=== PATIENT | male | born 1950 | race Caucasian/White ===

== ENCOUNTER 2020-12-10 11:22 | Emergency (ER) | payer MEDICARE, OTHER ==
[~2020-12-10 11:22] MED LIST: JANUMET 50-1,01 EACH PO; LIPITOR 10MG TA10 MG PO; NORCO 10-325 T1 EACH PO; OMEPRAZOLE 20MG20 MG PO; PREVACID30 M1 PO; PRINIVIL20 MG PO; PROZAC20 MG PO; SYNTHROID75 MCG PO; TIZANIDINE HCL4 M1 PO
[2020-12-10 12:57] LABS: BASOPHIL 0.3 % (0-2); EOSINOPHIL 1.7 % (0-7); HCT 40.3 % (42.0-52.0); HGB 13.7 g/dl (13.2-18.0); LYMPHOCYTE 24.3 % (15-48); MCH 32.4 pg (25.0-31.0); MCV 95.3 fL (78.0-100.0); MPV 9.4 fL (6.0-9.5); NEUTROPHIL 65.4 % (41-80); NRBC 0; PLT 171 K/uL (150-400); RBC 4.23 M/uL (4.70-6.00); RDW 13.2 % (11.5-14.0); WBC 6.5 K/uL (4.0-10.5)
[2020-12-10 13:17] LABS: ALBUMIN 3.9 g/dL (3.4-5.0); BILIRUBIN - TOTAL 0.3 mg/dL (0.2-1.0); BUN/CREAT RATIO (CALC) 19.1 RATIO; CREATININE 0.68 mg/dL (0.67-1.17); GLOBULIN (CALCULATION) 3.7 g/dL; POTASSIUM 4.1 mmol/L (3.5-5.1); TOTAL PROTEIN 7.6 g/dL (6.4-8.2)
[2020-12-10 15:38] LABS: BILIRUBIN NEGATIVE (NEGATIVE); BLOOD TRACE-LYSED Ery/uL (NEGATIVE); CLARITY CLEAR (CLEAR); COLOR YELLOW (YELLOW); GLUCOSE (U) 3+ mg/dL (NORMAL); LEUKOCYTES NEGATIVE Leu/uL (NEGATIVE); NITRITE NEGATIVE (NEGATIVE); PROTEIN NEGATIVE (NEGATIVE); UROBILINOGEN 0.2 mg/dL (0.2-1.0)
[2020-12-10 15:49] LABS: SQUAMOUS EPITHELIAL CELLS RARE; URINARY RBC RARE; URINARY WBC RARE
== END 2020-12-10 17:11 | disposition home or self-care (01) ==
LOC: FER 11:22
PROVIDERS: Emergency Medicine
DX: R10.9 Unspecified abdominal pain (principal); E11.9 Type 2 diabetes mellitus without complications; K21.9 Gastro-esophageal reflux disease without esophagitis; Z98.890 Other specified postprocedural states; Z79.84 Long term (current) use of oral hypoglycemic drugs; Z79.899 Other long term (current) drug therapy
CPT/HCPCS: 36415; 80053; 81001; 82150; 83690; 85025; J7030; Q9967

== ENCOUNTER 2021-04-03 12:55 | Emergency (ER) | payer MEDICARE, OTHER | END 2021-04-03 15:45 | disposition home or self-care (01) | LOC: FER 12:55 | DX: M54.41 Lumbago with sciatica, right side (principal); E11.9 Type 2 diabetes mellitus without complications; J44.9 Chronic obstructive pulmonary disease, unspecified | CPT/HCPCS: 72100; 73502; 96372; J1100; J1885 ==